=== PATIENT | male | born 1975 | race Caucasian/White ===

== ENCOUNTER 2019-02-16 09:53 | Outpatient (CLI) | payer OTHER, SELFPAY ==
[2019-02-16 12:53] LABS: Basophils Percent Auto 0.6 % (0.2-1.2); Eosinophils Absolute Auto 0.1 K/mm3 (0-0.3); Eosinophils Percent Auto 1.7 % (0-4.4); Hematocrit 47.6 % (42.0-52.0); Immature Granulocyte Absolute 0.03 K/mm3 (0.00-0.031); Immature Granulocyte Percent A 0.5 % (0-0.5); Lymphocytes Absolute Auto 1.26 K/mm3 (0.9-3.2); Mean Corpuscular HGB Conc 33.6 g/dl (32-36); Mean Corpuscular Hemoglobin 32.3 pg (26-34); Mean Platelet Volume 11.6 fl (7.4-10.4); Monocytes Absolute Auto 0.6 K/mm3 (0.1-0.6); Monocytes Percent Auto 8.3 % (2.6-8.5); Neutrophils Absolute Auto 4.6 K/mm3 (1.3-6.7); Neutrophils Percent Auto 69.9 % (45.5-73.1); Platelet Count Result 198 k/mm3 (150-375); Red Blood Count 4.96 M/mm3 (4.6-6.20); White Blood Count 6.6 K/mm3 (4.5-10.0)
[2019-02-16 12:59] LABS: Alanine Aminotransferase 67 U/L (4-50); Albumin Level 4.8 g/dL (3.5-5.1); Alkaline Phosphatase 70 U/L (38-126); Aspartate Amino Transferase 42 U/L (17-59); Bilirubin,Total 0.7 mg/dL (0.2-1.3); Blood Urea Nitrogen 14 mg/dL (9-20); Calcium 9.8 mg/dL (8.4-10.2); Carbon Dioxide 28 mmol/L (22-30); Chloride 96 mmol/L (98-107); Cholesterol 227 mg/dL (0-200); Estimated Glomerular Filt Rate > 60; Glucose 98 mg/dL (75-110); HDL Direct 46 mg/dL; Sodium 140 mmol/L (137-145); Triglycerides 185 mg/dL (<150)
[2019-02-16 13:08] LABS: Hemoglobin A1C 5.5 % (<5.7)
[2019-02-16 13:11] LABS: LDL Cholesterol Direct 128 mg/dL
[2019-02-16 13:24] LABS: Creatinine Urine 20.2 mg/dL
[2019-02-16 13:27] LABS: MALB Creatinine Ratio 316.3 mg/g (0-30); Microalbumin Urine Random 63.9 mg/L (0-16.7)
[2019-02-16 13:31] LABS: Prostate Specific Antigen 1.6 ng/mL (< OR = 4.0); Thyroid Stimulating Hormone 0.741 uIU/mL (0.465-4.680)
== END 2019-02-16 09:54 | disposition home or self-care (01) ==
LOC: ANHVADLAB 09:56
PROVIDERS: PCP Internal Medicine; Visit Provider Internal Medicine
DX: I10 Essential (primary) hypertension (principal); E78.5 Hyperlipidemia, unspecified; Z12.5 Encounter for screening for malignant neoplasm of prostate; Z79.899 Other long term (current) drug therapy
CPT/HCPCS: 36415; 80053; 80061; 82043; 83036; 84153; 84443; 85025

== ENCOUNTER 2019-12-15 06:55 | Outpatient (NON) | payer BC, SELFPAY ==
[2019-12-15 18:16] LABS: SARS-CoV-2 RNA PCR Negative
== END 2019-12-15 06:56 ==
PROVIDERS: PCP Internal Medicine; Visit Provider Internal Medicine
DX: R09.89 Other specified symptoms and signs involving the circulatory and respiratory systems (principal); Z20.828 Contact with and (suspected) exposure to other viral communicable diseases
CPT/HCPCS: 87635; C9803; U0003

== ENCOUNTER → 2020-05-06 06:57 | Outpatient (CLI) | payer BC, SELFPAY ==
[2020-05-06 22:51] LABS: SARS-CoV-2 RNA PCR Negative
== END ==
PROVIDERS: PCP Internal Medicine; Visit Provider Internal Medicine
DX: Z20.822 Contact with and (suspected) exposure to COVID-19 (principal); R68.89 Other general symptoms and signs
CPT/HCPCS: C9803; U0003; U0005

== ENCOUNTER → 2021-01-12 01:47 | Outpatient (CLI) | payer BC, SELFPAY ==
[2021-01-12 11:28] LABS: Influenza Control Positive
[2021-01-12 22:24] LABS: SARS-CoV-2 RNA PCR Negative
== END ==
PROVIDERS: PCP Internal Medicine; Visit Provider Internal Medicine
DX: R68.89 Other general symptoms and signs (principal); Z20.822 Contact with and (suspected) exposure to COVID-19
CPT/HCPCS: 87804; C9803; U0003; U0005

== ENCOUNTER 2021-03-07 14:06 | Emergency (ER) | payer BC, SELFPAY ==
[2021-03-07 14:08] VITALS: BP 144/96; PULSE 87; RESP 20; TEMP 36.6; O2SAT 98
--- NOTE | 2021-03-07 17:04 | PC.NURSE ---
pt. states he is going to follow up with pcp. pt. NAD.
== END 2021-03-08 03:09 | disposition left against medical advice (07) ==
DX: Z53.21 Procedure and treatment not carried out due to patient leaving prior to being seen by health care provider (principal)
CPT/HCPCS: 99199

== ENCOUNTER → 2021-03-09 08:01 | Outpatient (CLI) | payer BC, SELFPAY ==
--- NOTE | ~2021-03-09 | XR_ITS ---
EXAMINATION: XR hand LT 2V DATE: 03/09/2021 08:23 INDICATION: Left hand pain. TECHNIQUE: 2 views of left hand were obtained. COMPARISON: None. FINDINGS: Bone alignment is normal. No acute fracture. There is chronic deformity of tuft of first di stal phalanx. There is mild osteoarthritis of first-third metacarpophalangeal joints, first interphal angeal joint, and second distal interphalangeal joint. IMPRESSION: 1. Mild polyarticular osteoarthritis. Reviewed, dictated and finalized at location B. 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
--- NOTE | ~2021-03-09 | XR_ITS ---
EXAMINATION: XR forearm LT 2V DATE: 03/09/2021 08:23 INDICATION: Left forearm pain. TECHNIQUE: 2 views of left forearm were obtained. COMPARISON: None. FINDINGS: Bone alignment is normal. No fracture. Joint spaces are well maintained. There is no elbow joint effusion. IMPRESSION: 1. No fracture. Reviewed, dictated and finalized at location B. GER LEADERSHIP DEVELOPMENT IMPRESSION: 1. No fracture.
== END ==
PROVIDERS: PCP Internal Medicine; Visit Provider Nurse Practitioner
DX: M18.12 Unilateral primary osteoarthritis of first carpometacarpal joint, left hand (principal); M19.042 Primary osteoarthritis, left hand
CPT/HCPCS: 73090; 73120

== ENCOUNTER 2021-03-28 14:31 | Outpatient (CLI) | payer BC, SELFPAY ==
--- NOTE | ~2021-03-28 | CT_ITS ---
EXAMINATION: CT brain wo/w con DATE: 03/28/2021 15:00 INDICATION: Unspecified injury of head, initial encounter. TECHNIQUE: Computed tomography (CT) of the head was performed without and with 100 mL Omnipaque 350 i ntravenous contrast. The mA was adjusted according to patient size. Iterative reconstruction techniqu e was employed. The dose-length product was 1210.67 mGy-cm. COMPARISON: Head CT 08/20/2012 FINDINGS: There is no intracranial hemorrhage, acute infarction, or abnormal intracranial mass lesion . The ventricles are normal in size. There is mild mucosal thickening in the ethmoid sinuses. The mas toid air cells are normal. The orbits are normal. IMPRESSION: 1. Normal brain. Reviewed, dictated and finalized at location A. CTURAL ARCHITECT IMPRESSION: 1. Normal brain.
[2021-03-28 14:52] LABS: Estimated Glomerular Filt Rate > 60
== END 2021-03-28 14:32 | disposition home or self-care (01) ==
LOC: ANHIMG 14:34
PROVIDERS: PCP Internal Medicine; Visit Provider Nurse Practitioner
DX: S09.90XA Unspecified injury of head, initial encounter (principal); X58.XXXA Exposure to other specified factors, initial encounter
CPT/HCPCS: 70470; Q9967

== ENCOUNTER 2021-05-02 08:45 | Outpatient (CLI) | payer BC, SELFPAY ==
--- NOTE | 2021-05-02 11:30 | NEURO_ITS ---
Impression: # Complains of numbness of left hand. # Normal nerve conduction study. # No Carpal Tunnel Syndrome or ulnar neuropathy. # Normal needle/EMG exam. # Clinical correlation recommended. Nerve Conduction Studies Anti Sensory Summary Table Stim Site NR Peak (ms) P-T Amp (?V) Site1 Site2 Delta-P (ms) Dist (cm) Ricky (m/s) Left Median Anti Sensory (2-3nd Digit) Wrist 2.7 92.9 Wrist 2-3nd Digit 2.7 14.0 52 Wrist 2.7 58.6 Wrist 2-3nd Digit 2.7 14.0 52 Left Radial Anti Sensory (Base 1st Digit) Wrist 2.1 20.7 Wrist Base 1st Digit 2.1 0.0 Left Ulnar Anti Sensory (5th Digit) Wrist 2.5 48.3 Wrist 5th Digit 2.5 14.0 56 Motor Summary Table Stim Site NR Onset (ms) O-P Amp (mV) Site1 Site2 Delta-0 (ms) Dist (cm) Ricky (m/s) Left Median Motor (Abd Poll Brev) Wrist 2.7 7.2 Elbow Wrist 4.5 27.0 60 Elbow 7.2 6.6 Left Ulnar Motor (Abd Dig Minimi) Wrist 2.1 6.3 A Elbow Wrist 4.6 27.0 59 A Elbow 6.7 4.7 F Wave Studies NR F-Lat (ms) L-R F-Lat (ms) Left Median (Mrkrs) (Abd Poll Brev) 26.25 Left Ulnar (Mrkrs) (Abd Dig Min) 27.19 EMG Side Muscle Nerve Root Ins Act Fibs Amp Dur Recrt Comment Left 1stDorInt Ulnar C8-T1 Nml Nml Nml Nml Nml Left Ext Indicis Radial (Post Int) C7-8 Nml Nml Nml Nml Nml Left Ext Digitorum Radial (Post Int) C7-8 Nml Nml Nml Nml Nml Left BrachioRad Radial C5-6 Nml Nml Nml Nml Nml Left PronatorTeres Median C6-7 Nml Nml Nml Nml Nml Left Abd Poll Brev Median C8-T1 Nml Nml Nml Nml Nml Left ABD Dig Min Ulnar C8-T1 Nml Nml Nml Nml Nml Left Abd Poll Long Radial (Post Int) C7-8 Nml Nml Nml Nml Nml MTDD
== END 2021-05-02 08:46 | disposition home or self-care (01) ==
LOC: ANHNEURO 08:46
PROVIDERS: PCP Internal Medicine; Visit Provider Nurse Practitioner
DX: R20.0 Anesthesia of skin (principal)
CPT/HCPCS: 95886; 95909

== ENCOUNTER 2021-07-05 05:37 | Outpatient (CLI) | payer BC, SELFPAY ==
--- NOTE | 2021-07-10 16:26 | WPDHOMESLEEP ---
Sleep Study - Home Unattended Date of Study: 07/05/21 Ordering Provider: Mamadou Etienne MD Interpreting Provider: Kayla Hernandez, DO Home Sleep Study Type: Apnea Link Air Height: 1.73 m Weight: 104.326 kg Body Mass Index: 34.9 Neck Circumference (inches): 18.5 [place]: 7 Reason for Sleep Study Snoring, daytime hypersomnia Sleep History The patient is a 46-year-old male with hypertension, hyperlipidemia, tobacco use disorder and alcohol use disorder that had a sleep study ordered by his primary care for evaluation of sleep apnea. 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 He denies awakening from sleep short of breath. He occasionally awakens at night with heartburn, belching or cough. He frequently snores and is occasionally loud enough that others complain. He rarely has trouble sleeping when he has a cold. He rarely wakes up gasping for air throughout the night. He occasionally has breathing problems at night observed by himself or others. He rarely sweats excessively at night. He rarely has heart palpitations or irregular heartbeats during the night. He occasionally falls asleep during the day but never while driving. He denies cataplexy and hypnagogic / hypnopompic hallucinations. He occasionally feels unable to move while waking up or falling asleep. He rarely has trouble at school or work due to sleepiness. He rarely feels afraid of going to sleep. He denies having nightmares. He rarely remembers his dreams. He occasionally has thoughts racing through his mind. He rarely feels sad or depressed. He occasionally has anxiety. He occasionally has muscular tension. He occasionally notices parts of his body jerk. He rarely kicks during the night. He rarely has crawling and aching feelings in his legs. He occasionally has leg pain during the night. He occasionally grinds his teeth during sleep but never awakens with morning jaw pain. He is rarely bothered by pain during the day but frequently awakened by pain during the night. He frequently wakes up feeling stiff in the morning. He frequently wakes up with sore achy muscles. He frequently wakes up with pain in the neck, spine or other joints. He goes to bed between 10 and 10:30 p.m. on weekdays and between 11:00 p.m. and midnight on the weekends. It takes him 15 minutes to fall asleep. He wakes up 1-2 times throughout the night to you let the dog out. He is able fall back asleep within 5-10 minutes. He wakes up at 7:00 a.m. on both weekdays and weekends. He typically gets 7 hours of sleep per night. He will stay in bed for 10 minutes after waking up in the morning. He currently lives with his and 2 children. He does not consume any caffeinated beverages within 2 hours of bedtime. He does not engage in physical exercise before bedtime. He will read and watch television before falling asleep. He will take naps in the afternoon or the evening and they are refreshing. He currently smokes half a pack of cigarettes per day for the past 5 years. He also chews tobacco. he has 3 alcoholic beverages per day. He denies recreational drug use. [facility] Past Medical History Medical History Alcohol abuse Dyslipidemia Essential hypertension Social History Social History Smoking packs per day: 0.5 Smoking cigarettes per day: 10.0 Years smoked: 5 Smoking pack-years: 2.50 Tobacco type: cigarettes Smokeless tobacco user: chewing tobacco Second hand tobacco smoke exposure: No Additional smoking assessment comments: 20 years use Alcohol intake: current Drinks per week: 15 Alcohol use details: 3 drinks a week Medications Home Medications Medication Instructions Recorded Confirmed Type aspirin 81 mg tablet,delayed 81 mg PO DAILY 07/22/20 06/06/21 History release rosuvastatin 20 mg tablet See Rx Instructions
[2021-07-10 16:42] VITALS: BMI 34.9
== END 2021-07-06 13:08 | disposition home or self-care (01) ==
LOC: ANHCSM 05:37
PROVIDERS: PCP Internal Medicine; Visit Provider Internal Medicine
DX: G47.33 Obstructive sleep apnea (adult) (pediatric) (principal)
CPT/HCPCS: 95806

== ENCOUNTER 2024-12-14 20:33 | Observation (INO) | payer BC, SELFPAY ==
[2024-12-14] VITALS (12 sets, daily range): BP systolic 142; BP diastolic 80; PULSE 53–75; RESP 14–28; TEMP 36.8; O2SAT 90–100
--- NOTE | ~2024-12-14 | CT_ITS ---
EXAMINATION: CTA chest abdomen pelvis DATE: 12/15/2024 00:57 INDICATION: Chest pain. TECHNIQUE: Computed tomographic angiography (CTA) of the chest, abdomen, and pelvis was performed with 100 mL Omnipaque-350 intravenous contrast. Automated exposure control and iterative reconstruction technique were employed. The dose- length product was 1577.60 mGy-cm. Maximum intensity projection 3D- reconstructions of the aorta and other arteries were constructed by the technologist on a separate workstation. COMPARISON: CT abdomen and pelvis 04/23/2018 FINDINGS: CHEST CTA: The lungs demonstrate mild atelectasis. No pleural effusion. The heart size is normal. There are coronary artery calcifications. No pericardial effusion. The aorta is normal in caliber. There is wall thickening of the distal esophagus. There is mild thoracic spondylosis. ABDOMEN AND PELVIS CTA: Calcifications in the liver are consistent with old granulomatous disease. The gallbladder, spleen, pancreas, and adrenal glands are normal. There are cysts in the kidneys measuring up to 10 mm on the left. The bladder is distended. There are bilateral inguinal hernias containing fat. There is diverticulosis of the colon without evidence of diverticulitis. There are changes of appendectomy. Aortic atherosclerosis is noted. There is no significant stenosis of celiac axis, superior mesenteric artery, the renal arteries, or inferior mesenteric artery. There is mild lumbar spondylosis. IMPRESSION: 1. Mild aortic atherosclerosis. No aneurysm or dissection. 2. Wall thickening of the distal esophagus, consistent with esophagitis. Reviewed, dictated and finalized at location E.
--- NOTE | ~2024-12-14 | XR_ITS ---
EXAMINATION: XR chest 2V DATE: 12/14/2024 21:38 INDICATION: Chest pain and vomiting TECHNIQUE: frontal and lateral views of the chest were obtained. COMPARISON: Chest radiograph dated 12/13/2009 FINDINGS: Mildly decreased lung volumes. No focal airspace opacities, pulmonary edema, pleural effusion or pneumothorax. The cardiomediastinal silhouette is normal. Mild thoracic spondylosis. IMPRESSION: 1. No acute cardiopulmonary disease. Reviewed, dictated and finalized at location A.
--- NOTE | 2024-12-14 20:36 | ECG_ITS ---
Test Date: 2024-12-14 20:35:29 Measurements Intervals [place] Rate: 75 P: 59 SD: 182 QRS: 20 QRSD: 90 T: 42 QT: 391 QTc: 437 Interpretive Statements SINUS RHYTHM ANTEROSEPTAL INFARCT, AGE INDETERMINATE BASELINE ARTIFACT- I, II, III, AVR, AVL, AVF, V1-V6 ABNORMAL ECG No previous ECG available for comparison Electronically Signed On 12-15-2024 08:13:20 CDT by Ilan Maria D.O.
--- NOTE | 2024-12-14 20:53 | PC.NURSE ---
Pt to XR at this time
[2024-12-14] MEDS: MORPHINE SULFATE (*CRX) 4 MG/ML INJ IV PUSH (20:59)
[2024-12-14] MEDS: ONDANSETRON INJ 4 MG/2 ML VIAL IV PUSH (20:59)
[2024-12-14] MEDS: NITROGLYCERIN SL 0.4 MG TABLET SUBLINGUAL (20:59)
[2024-12-14 21:00] LABS: Lipase 67 U/L (23-300)
[2024-12-14 21:01] LABS: INR 0.9; Prothrombin Time 12.4 Seconds (11.1-14.7)
[2024-12-14 21:02] LABS: Partial Thromboplastin Time 27.2 Seconds (22.3-36.8)
[2024-12-14 21:10] LABS: Troponin I < 0.012 ng/mL (0.000-0.034)
[2024-12-14] MEDS: HYDROmorphone HCL INJ (*CRX) 1 MG/ML SYR IV PUSH (22:07)
[2024-12-14] MEDS: PROCHLORPERAZINE EDISYLATE 10 MG/2 ML VIAL IV PUSH (22:07)
--- OUTSIDE RECORDS SUMMARY | 2024-12-14 22:20 | XMS_ITS | Clinical Summary ---
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 Name Role Phone Geri Johnson NP Primary Care Provider [phone] Kirby Broderick MD Unavailable [phone] Allergies Active Allergy Reactions Criticality Noted Date Comments Shellfish Hives Medium 08/24/1979 Medications aspirin 81 mg enteric coated tablet Take 1 tablet (81 mg total) by mouth daily Active metoprolol XL (TOPROL-XL) 25 mg extended release tabletIndications:P rimary hypertension Take 1 tablet (25 mg total) by mouth daily 90 tablet 3 4 02/25/20 25 Active atorvastatin (LIPITOR) 40 mg tabletIndications:M ixed hyperlipidemia Take 1 tablet (40 mg total) by mouth nightly 90 tablet 3 4 02/25/20 25 Active amLODIPine (NORVASC) 5 mg tabletIndications:h ypertension Take 1 tablet (5 mg total) by mouth daily 90 tablet 3 4 02/20/20 25 Active Active Problems Problem Noted Date Diagnosed Date Primary hypertension 02/25/2024 Assessment & Plan (02/25/2024 11:30 AM CONSTRUCTION MANAGEMENT ASSISTANT): Better controlled, close to goal 130/80. NO changes due to current stress factors. Continuing on amlodipine 5 and metoprolol IR was changed to Toprol 25 mg daily for ease of use. Start bp log at home. F/u in office in 3 months once current stress inducers have settled. Mixed hyperlipidemia 02/25/2024 Assessment & Plan (02/25/2024 11:29 AM CONSTRUCTION MANAGEMENT ASSISTANT): Continuing on atorvastatin. Last LDL was 206. Repeat lipid panel. Resolved Problems Problem Noted Date Diagnosed Date Resolved Date Chest pain, unspecified type 12/17/2023 02/25/2024 Surgical History Surgery Date Site/Laterality Comments APPENDECTOMY 01-13-2013 Medical History Medical History Date Comments Hypertension HLD (hyperlipidemia) Obesity (BMI 30.0-34.9) Alcohol abuse Chest pain, unspecified type 12/17/2023 Family History Medical History Relation Name Comments Cancer Brother 1 Eder Gula II Heart attack Brother 2 Yonatan Gula Heart disease Brother 2 Yonatan Zepeda Heart attack Father Mustapha Zepeda II Heart disease Father Mustapha Zepeda II Relation Name Status Comments Brother 1 Eder Zepeda II Alive Brother 2 Yonatan Zepeda Father Mustapha Zepeda II Social History Tobacco Use Types Packs/Day Years Used Date Smoking Tobacco: Former Cigarettes 0.5 5 0 03/25/1991 - 03/25/1996 Smokeless Tobacco: Former Chew Quit: 07/23/2022 AUDIT-C Answer Date Recorded Q1: How often do you have a drink containing alc ohol? Monthly or less 12/18/2023 Q2: How many drinks containi ng alcohol do you have on a typical day when you are drinking? 1 or 2 12/18/2023 Q3: How often do you have si x or more drinks on one occasion? Never 12/18/2023 Personal Safety Answer Date Recorded Have you ever been in or are you currently in a harmful physical or emotional relationship or is someone making you feel afraid or unsafe? Denies 12/18/2023 Sex and Gender Information Value Date Recorded Sex Assigned at Not on file Legal Sex Male 5:46 PM CONSTRUCTION MANAGEMENT ASSISTANT Gender Identity Not on file Sexual Orientation Not on file Obstetrics History Last Filed Vital Signs Vital Sign Reading Time Taken Comments Blood Pressure 125/70 06/25/2024 3:56 PM CDT Pulse 77 06/25/2024 3:56 PM CDT Temperature 36.4 C (97.6 F) 12/18/2023 3:24 PM CDT Respiratory Rate 18 12/18/2023 3:24 PM CDT Oxygen Saturation 95% 06/25/2024 3:56 PM CDT Inhaled Oxygen Concentration - - Weight 106.3 kg (234 lb 6.4 oz) 06/25/2024 3:56 PM CDT Height 172.7 cm (5' 8) 02/25/2024 10:5 9 AM CONSTRUCTION MANAGEMENT ASSISTANT Body Mass Index 35.64 02/25/2024 10:59 AM CONSTRUCTION MANAGEMENT ASSISTANT Plan of Treatment Health Maintenance Due Date Last Done Comments Colon Cancer Screening-Colonoscopy 1973 Depression Screening 1973 Hepatitis C Screening 1973 Prostate Cancer Screening-PSA 1973 DTaP/Tdap/Td Vaccine (1 - Tdap) 1984 Hepatitis B Screening 1991 Regular Well Visit/Exam 18-64 1991 Pneumococcal vaccine <65 (1 of 2 - PCV) 1992 Zoster Vaccine (1 of 2) 2023 Influenza Vaccine (#1) 2024 Insurance [employer] ACCESS CHOICE [employer] ACCESS CHOICE Advance Directives For more information, please contact: [phone] * Full Code (Latest Code Status on File) Date Activated Date Inactivated Comments 12/17/2023 8:45 PM 12/18/2023 8:28 PM * Full Code Date Activated Date Inactivated Comments 12/17/2023 8:06 PM 12/17/2023 8:45 PM Care Teams Beef Cattle Farmer Relationship Specialty Start Date End Date Geri Johnson NP [address] [place] [address] PCP - General Nurse Practitioner 12/17/23 Kirby Broderick MD [facility] [place] [address] Consulting Physician Cardiology 12/18/23
[2024-12-14 23:05] LABS: Hematocrit 41.6 % (42.0-52.0); Hemoglobin 14.8 g/dL (14.0-18.0); Immature Granulocyte Percent A 0.5 % (0-0.5); Lymphocytes Absolute Auto 1.24 K/mm3 (0.9-3.2); Mean Corpuscular HGB Conc 35.6 g/dl (32-36); Mean Corpuscular Hemoglobin 31.5 pg (26-34); Mean Corpuscular Volume 88.5 fl (80-100); Nucleated Red Blood Cells Absolute Auto 0.000 K/mm3 (0.0-0.012); Nucleated Red Blood Cells Perc 0.0 % (0.0-0.2); Platelet Count Result 214 k/mm3 (150-375); Red Blood Count 4.70 M/mm3 (4.6-6.20); White Blood Count 14.6 K/mm3 (4.5-10.0)
--- NOTE | 2024-12-14 23:21 | ECG_ITS ---
Test Date: 2024-12-14 23:21:48 Measurements Intervals [place] Rate: 56 P: 54 VA: 210 QRS: 23 QRSD: 94 T: 46 QT: 451 QTc: 438 Interpretive Statements SINUS BRADYCARDIA WITH FIRST DEGREE AV BLOCK ANTEROSEPTAL INFARCT, AGE INDETERMINATE BASELINE ARTIFACT- I, III ABNORMAL ECG No previous ECG available for comparison Electronically Signed On 12-15-2024 06:13:54 CDT by Ilan Maria D.O.
--- NOTE | 2024-12-14 23:50 | ED.GENADULT ---
HPI - General Adult General Chief complaint: Chest Pain Stated complaint: CP RADIATING DOWN LEFT ARM; UNRELIEVED BY NTG Time Seen by Provider: 12/14/24 20:39 History of Present Illness HPI narrative: Patient is a 49-year-old gentleman presents emergency department with chief complaint of chest pain patient reports that throughout the day started having episodes of chest pain starts the middle portion of his chest radiates to his back into his left arm and neck the patient reports he got diaphoretic with these episodes and reports that it was not improve when he EMS gave 2 sprays of nitroglycerin the patient reports that he had a similar episode and was seen at a hospital in [place] at that time was diagnosed with high blood pressure and dyslipidemia the patient is on antihypertensives and reports that he is on a statin as well Related Data Home Medications ?Medication ?Instructions ?Recorded ?Confirmed ?Last Taken ?Type amlodipine 5 mg tablet See Rx Instructions .Route .COMPLEX 03/03/24 04/13/24 Unknown History aspirin 81 mg tablet,delayed 81 mg PO DAILY 03/03/24 03/03/24 Unknown History release (Adult Aspirin Regimen) atorvastatin 40 mg tablet 40 mg PO QHS 03/03/24 03/03/24 Unknown History metoprolol succinate 25 mg 25 mg PO DAILY 03/03/24 03/03/24 Unknown History tablet,extended release 24 hr Allergies Allergy/AdvReac Type Severity Reaction Status Date / Time Bumble Bee Allergy Mild Swelling Uncoded 04/13/24 07:27 Shrimp Allergy Mild Swelling Uncoded 04/13/24 07:27 Review of Systems Review of Systems: A 10 system review of systems was completed on the patient and is negative except for what is stated in the HPI. Nursing and ancillary documentation was reviewed. [facility] Past Medical History Medical History Alcohol abuse Dyslipidemia Essential hypertension Social History Social History Smoking packs per day: 0.5 Smoking cigarettes per day: 10.0 Years smoked: 5 Smoking pack-years: 2.50 Smoking status: Former smoker Tobacco type: cigarettes Smokeless tobacco user: chewing tobacco Second hand tobacco smoke exposure: No Additional smoking assessment comments: 20 years use Alcohol intake: current Drinks per week: 15 Alcohol use details: 3 drinks a week Substance use: never Lack of Transportation: No Lack of Food: Never True Current Housing: I Have Housing Concerned About Future Housing: No Difficulty Paying Gas/Electric Bills: Decline to Answer Difficulty Paying for Meds: No Education: Bachelor's Degree Difficulty w/ Childcare or Family Care: No Living arrangements: with family Occupation/Education: occupation Gender identity (if verbalized by the patient): Male Sexual Orientation (if Verbalized by the Patient): Straight or Heterosexual Spiritual care concerns: No Agree to blood products: Yes Exam Narrative: GENERAL: Well-appearing, well-nourished, and in moderate acute pain distress. HEAD: Normocephalic, atraumatic. EYES: PERRLA and EOMI. ENT: Nares clear, no rhinorrhea or epistaxis. Mucous membranes moist. NECK: Supple. CHEST: Clear to auscultation. No respiratory distress. HEART: Regular rate and rhythm. No murmur heard. Normal peripheral pulses. ABDOMEN: Soft, nontender, nondistended, normal active bowel sounds. EXTREMITIES: Normal range of motion. No edema. SKIN: Warm, dry, no rash. NEURO: No focal deficits. Alert and oriented x3. PSYCH: Normal mood and affect. Course Vital Signs Vital signs: Vital Signs Temperature 36.8 C 12/14/24 20:31 Pulse Rate 74 12/14/24 20:31 Respiratory Rate 16 12/14/24 20:31 Blood Pressure 142/80 H 12/14/24 20:31 Pulse Oximetry 95 12/14/24 20:31 Oxygen Delivery Room Air 12/14/24 20:31 Temperature 36.8 C 12/14/24 20:31 Pulse Rate 74 12/14/24 20:31 Respiratory Rate 16 12/14/24 20:31 Blood Pressure 142/80 H 12/14/24 20:31 Pulse Oximetry 100 12/14/24 23:06 Oxygen Delivery Nasal Cannula 12/14/24 23:06 Oxygen Flow Rate 2 12/14/24 23:06 Medical Decision Making [facility] Narrative Medical decision making narrative: Differential diagnosis includes ACS, pancreatitis, pneumothorax, gastritis, EKG showed no acute ST elevations Initial troponin was negative Lipase was negative Chest x-ray showed no focal infiltrate Electrolytes did show a sodium 120 Patient was started on 75 mL an hour normal saline and a BMP will be repeated case was discussed with nephrology the consult on the patient Vital Signs Vital Signs: Vital Signs Temperature 36.8 C 12/14/24 20:31 Pulse Rate 74 12/14/24 20:31 Respiratory Rate 16 12/14/24 20:31 Blood Pressure 142/80 H 12/14/24 20:31 Pulse Oximetry 95 12/14/24 20:31 Oxygen Delivery Room Air 12/14/24 20:31 Temperature 36.8 C 12/14/24 20:31 Pulse Rate 74 12/14/24 20:31 Respiratory Rate 16 12/14/24 20:31 Blood Pressure 142/80 H 12/14/24 20:31 Pulse Oximetry 100 12/14/24 23:06 Oxygen Delivery Nasal Cannula 12/14/24 23:06 Oxygen Flow Rate 2 12/14/24 23:06 Lab Data 12/14/24 20:37 12/14/24 23:24 Labs: Lab Results 12/14/24 12/14/24 12/14/24 Range/Units 20:37 20:38 23:24 WBC 14.6 H (4.5-10.0) K/mm3 RBC 4.70 (4.6-6.20) M/mm3 Hgb 14.8 (14.0-18.0) g/dL Hct 41.6 L (42.0-52.0) % MCV 88.5 (80-100) fl MCH 31.5 (26-34) pg MCHC 35.6 (32-36) g/dl RDW 12.0 (11.5-14.5) % Plt Count 214 (150-375) k/mm3 MPV 11.1 H (7.4-10.4) fl Immature Gran % (Auto) 0.5 (0-0.5) % Neut % (Auto) 84.1 H (45.5-73.1) % Lymph % (Auto) 8.5 L (18.3-44.2) % [place]gs % (Auto) 6.2 (2.6-8.5) % Eos % (Auto) 0.2 (0-4.4) % Baso % (Auto) 0.5 (0.2-1.2) % Lymph # (Auto) 1.24 (0.9-3.2) K/mm3 [place] # (Auto) 0.9 H (0.1-0.6) K/mm3 Eos # (Auto) 0.0 (0-0.3) K/mm3 Baso # (Auto) 0.1 (0.0-0.1) K/mm3 Abs Immat Gran (auto) 0.08 H (0.00-0.031) K/mm3 Absolute Neuts (auto) 12.3 H (1.3-6.7) K/mm3 Absolute Nucleated RBC 0.000 (0.0-0.012) K/mm3 Nucleated RBC % 0.0 (0.0-0.2) % PT 12.4 (11.1-14.7) Seconds INR 0.9 APTT 27.2 (22.3-36.8) Seconds Sodium 120 L (137-145) mmol/L Potassium 3.7 (3.4-5.0) mmol/L Chloride 86 L (98-107) mmol/L Carbon Dioxide 26 (22-30) mmol/L Anion Gap 8 (4-12) mmol/L BUN 8 L D (9-20) mg/dL Creatinine 0.60 L (0.7-1.3) mg/dL Estim Creat Clear Calc 146 ml/min Estimated GFR > 60 (59 - ) Glucose 134 H (65-110) mg/dL Calcium 8.5 (8.4-10.2) mg/dL Total Bilirubin 1.5 H (0.2-1.3) mg/dL AST 42 (17-59) U/L ALT 56 H (6-50) U/L Alkaline Phosphatase 90 (38-126) U/L Troponin I < 0.012 < 0.012 (0.000-0.034) ng/mL Total Protein 7.2 (6.3-8.2) g/dL Albumin 4.2 (3.5-5.1) g/dL Lipase 67 (23-300) U/L Discharge Plan Discharge Clinical Impression: Chest pain, Acute hyponatremia Patient Disposition: Still a Patient Condition: Stable Patient Language: Amharic Prescriptions: No Action aspirin [Adult Aspirin Regimen] 81 mg tablet,delayed release (DR/EC) 81 mg PO DAILY atorvastatin 40 mg tablet 40 mg PO QHS metoprolol succinate 25 mg tablet extended release 24 hr 25 mg PO DAILY amlodipine 5 mg tablet See Rx Instructions .ROUTE .COMPLEX Dose Instruction: TAKE 1 TABLET BY MOUTH DAILY Rx Instructions: TAKE 1 TABLET BY MOUTH DAILY Follow-up/Referrals: Geri Johnson APRN [Primary Care Provider, Internal Medicine] Time of Disposition: 02:40
[2024-12-14 23:55] LABS: Troponin I < 0.012 ng/mL (0.000-0.034)
[2024-12-15] VITALS (31 sets, daily range): BP systolic 128–164; BP diastolic 72–116; PULSE 57–85; RESP 13–21; TEMP 36.4–36.8; O2SAT 92–99; BMI 34.6; BMI 35.0
[2024-12-15 00:08] LABS: Alanine Aminotransferase 56 U/L (6-50); Albumin Level 4.2 g/dL (3.5-5.1); Alkaline Phosphatase 90 U/L (38-126); Anion Gap 8 mmol/L (4-12); Aspartate Amino Transferase 42 U/L (17-59); Bilirubin,Total 1.5 mg/dL (0.2-1.3); Blood Urea Nitrogen 8 mg/dL (9-20); Calcium 8.5 mg/dL (8.4-10.2); Carbon Dioxide 26 mmol/L (22-30); Chloride 86 mmol/L (98-107); Estimated CRCL calculation 146 ml/min; Estimated Glomerular Filt Rate > 60; Glucose 134 mg/dL (65-110); Potassium 3.7 mmol/L (3.4-5.0); Sodium 120 mmol/L (137-145); Total Protein 7.2 g/dL (6.3-8.2)
--- NOTE | 2024-12-15 02:44 | ECG_ITS ---
Test Date: 2024-12-15 02:49:13 Measurements Intervals [place] Rate: 67 P: 46 [place]: 208 QRS: 28 QRSD: 89 T: 50 QT: 409 QTc: 434 Interpretive Statements SINUS RHYTHM WITH FIRST DEGREE AV BLOCK ANTEROSEPTAL INFARCT, AGE INDETERMINATE BASELINE ARTIFACT- I, II, III, AVR, AVL ,AVF, V1-V6 ABNORMAL ECG Compared to ECG 12/14/2024 23:21:48 HEART RATE HAS INCREASED Electronically Signed On 12-15-2024 06:14:35 CDT by Ilan Maria D.O.
[2024-12-15 03:32] LABS: Troponin I < 0.012 ng/mL (0.000-0.034)
[2024-12-15] MEDS: SODIUM CHLORIDE 0.9% IV 1,000 ML 75 ML IV CONT (03:44)
--- NOTE | 2024-12-15 03:58 | ADMGEN ---
This patient, Jackson Zepeda, was admitted to IMU Room 206-02. Patient/family oriented to hospital policies and general routines including ID bracelet, bed and alarms, visiting hours, pain management, procedures, bathroom and other care routines, personal items, smoking policy, room service/diet, and visiting hours. Information on how to activate the Rapid Response Team has been discussed. Patient/Family are encouraged to report perceived risks to care and to ask questions if they do not understand what they are told or what they should do.
[2024-12-15] MEDS: CALCIUM CARBONATE (TUMS) 500 MG (200 MG ELEMENTAL) PO (04:20)
--- NOTE | 2024-12-15 05:31 | P.HP_ITS ---
H&P: HPI History of Present Illness Date/Time: 12/15/24 05:31 Chief Complaint: Chest pain, vomiting Narrative: 49-year-old male with PMH hypertension, dyslipidemia, alcohol use disorder, nicotine abuse by way of nicotine pouches, obesity class 1, presents to [facility] ER on 12/15/2024 complaining of chest pain. He last had workup in 2023 when he had midsternal chest pain. Nuclear stress test on 12/18/2023 demonstrates EF of 60%, a small/mild mid anteroseptal segment fixed defect, possibly attenuation artifact. His primary care is Geri Hughes. He reports he was following with a mechanical engineering lecturer and was told to have yearly checkups and everything was fine. He has been taking his aspirin. He uses nicotine pouches, he drinks very often, several beers per day. is present to report this. He believes he has had mild withdrawal before with sweating and tremors. He denies any other recreational drug use aside from occasional marijuana. Last alcoholic drink was 1 day prior to admission. Chest pain described as heavy, 9/10 left-sided which radiates to the back. This started while he was resting on 12/14/2024. He has had some vomiting nausea as well. He reports he has burning in his throat related to acid reflux and he uses Tums occasionally which helps. Patient got 2 sprays of nitroglycerin and reports that does not help. Morphine did not help. Finally Dilaudid improved symptoms. He reports the chest pain is minimal, 3/10. He is more so concerned about his acid reflux. He also tells me he drinks about 3 gal of water per day to stay hydrated. He does eat at least 2 full meals a day otherwise. Patient given Zofran, Compazine, aspirin 324 mg p.o. x1 as well. EKG without acute ST changes. Troponin negative x2. Review of Systems Review of Systems: All systems reviewed & are unremarkable except as noted in HPI and below (Subjective) [facility] Past Medical History Medical History Alcohol abuse Dyslipidemia Essential hypertension Family History Family History (Updated 12/15/24 @ 04:26 by Lilliana Wood RN) Father History of quadruple bypass Myocardial infarction Mother Brain aneurysm Sibling Myocardial infarction Social History Social History Smoking packs per day: 1 Smoking cigarettes per day: 20.0 Years smoked: 10 Smoking pack-years: 10.00 Smoking status: Former smoker Tobacco type: cigarettes Smokeless tobacco user: chewing tobacco Second hand tobacco smoke exposure: No Additional smoking assessment comments: 20 years use Alcohol intake: current Drinks per week: 40 Alcohol use details: 3 drinks a week Substance use: current Substance use type: marijuana Lack of Transportation: No Lack of Food: Never True Current Housing: I Have Housing Concerned About Future Housing: No Difficulty Paying Gas/Electric Bills: No Difficulty Paying for Meds: No Currently Unemployed: No Education: Bachelor's Degree Difficulty w/ Childcare or Family Care: No Living arrangements: with family Occupation/Education: occupation Gender identity (if verbalized by the patient): Male Sexual Orientation (if Verbalized by the Patient): Straight or Heterosexual Spiritual care concerns: No Agree to blood products: Yes Meds Home Medications and Allergies Home Medications ?Medication ?Instructions ?Recorded ?Confirmed ?Type amlodipine 5 mg tablet See Rx Instructions .Route . COMPLEX 03/03/24 12/15/24 History aspirin 81 mg tablet,delayed 81 mg PO DAILY 03/03/24 1 History release (Adult Aspirin Regimen) atorvastatin 40 mg tablet 40 mg PO QHS 03/03/24 History metoprolol succinate 25 mg 25 mg PO DAILY 03/03/2410/02 History tablet,extended release 24 hr Allergies Allergy/AdvReac Type Severity Reaction Status Date / Time Bumble Bee Allergy Mild Swelling Uncoded 04/13/24 07:27 Shrimp Allergy Mild Swelling Uncoded 04/13/24 07:27 Vital Signs Vital Signs - 24 hr 12/14/24 20:31 12/14/24 20:39 12/14/24 20:45 Temperature 98.3 F Pulse Rate 74 74 75 Respiratory Rate 16 17 16 Blood Pressure 142/80 H Pulse Oximetry 95 95 96 Oxygen Delivery Room Air Oxygen Flow Rate 12/14/24 21:16 12/14/24 21:33 12/14/24 21:59 Temperature Pulse Rate 74 64 64 Respiratory Rate 28 H 14 25 H Blood Pressure Pulse Oximetry 90 97 Oxygen Delivery Oxygen Flow Rate 12/14/24 22:00 12/14/24 22:21 12/14/24 23:06 Temperature Pulse Rate 68 59 L Respiratory Rate 20 14 Blood Pressure Pulse Oximetry 95 100 Oxygen Delivery Nasal Cannula Oxygen Flow Rate 2 12/14/24 23:18 12/14/24 23:32 12/14/24 23:47 Temperature Pulse Rate 53 L 54 L 58 L Respiratory Rate 14 15 14 Blood Pressure Pulse Oximetry 93 93 Oxygen Delivery Oxygen Flow Rate 12/15/24 01:09 12/15/24 01:10 12/15/24 01:15 Temperature Pulse Rate 63 65 62 Respiratory Rate 20 18 15 Blood Pressure 148/83 H Pulse Oximetry 98 96 96 Oxygen Delivery Oxygen Flow Rate 12/15/24 01:16 12/15/24 01:38 12/15/24 01:49 Temperature Pulse Rate 65 62 57 L Respiratory Rate 16 14 14 Blood Pressure 149/91 H Pulse Oximetry 96 97 Oxygen Delivery Oxygen Flow Rate 12/15/24 02:00 12/15/24 02:01 12/15/24 02:15 Temperature Pulse Rate 61 59 L 61 Respiratory Rate 15 15 13 Blood Pressure 144/92 H 164/104 H Pulse Oximetry 92 96 95 Oxygen Delivery Oxygen Flow Rate 12/15/24 02:19 12/15/24 02:30 12/15/24 02:31 Temperature Pulse Rate 61 74 65 Respiratory Rate 14 18 17 Blood Pressure 128/116 H Pulse Oximetry 97 95 97 Oxygen Delivery Oxygen Flow Rate 12/15/24 02:45 12/15/24 02:46 12/15/24 03:00 Temperature Pulse Rate 63 67 67 Respiratory Rate 16 21 H 16 Blood Pressure 143/89 H 153/95 H Pulse Oximetry 94 95 96 Oxygen Delivery Oxygen Flow Rate 12/15/24 03:01 12/15/24 03:17 12/15/24 03:30 Temperature Pulse Rate 59 L 58 L 67 Respiratory Rate 14 14 17 Blood Pressure Pulse Oximetry 97 96 Oxygen Delivery Oxygen Flow Rate 12/15/24 03:31 12/15/24 03:47 12/15/24 03:53 Temperature 97.9 F Pulse Rate 58 L 70 77 Respiratory Rate 14 16 Blood Pressure 143/85 H 147/87 H Pulse Oximetry 99 Oxygen Delivery Oxygen Flow Rate 12/15/24 04:00 12/15/24 04:00 12/15/24 04:00 Temperature Pulse Rate 70 62 Respiratory Rate Blood Pressure Pulse Oximetry Oxygen Delivery Room Air Oxygen Flow Rate 12/15/24 04:15 12/15/24 04:30 Temperature Pulse Rate 66 78 Respiratory Rate Blood Pressure Pulse Oximetry Oxygen Delivery Oxygen Flow Rate Exam Const: General: comfortable and no acute distress Other: A&O x3 HENMT: Mouth: Yes moist mucous membranes Eyes: Pupils: Equal, round and reactive pupils present Neck: Neck: supple Resp: Effort & Inspection: normal respiratory effort Auscultation: clear to auscultation bilaterally Cardio: Rate: regular rate Rhythm: regular rhythm Heart sounds: no murmurs Other: No reproducible chest pain GI: GI Palp: No Tenderness to palpation present (GI) Auscultation: normal bowel sounds Other: Distended and firm, patient reports this is normal. : General: Yes bladder normal to palpation Neuro: Motor exam (neuro): 5/5 motor strength present throughout Extrem: General: no edema H&P: Results Labs Labs: Short CBC 12/14/24 Range/Units 20:37 WBC 14.6 H (4.5-10.0) K/mm3 Hgb 14.8 (14.0-18.0) g/dL Hct 41.6 L (42.0-52.0) % Plt Count 214 (150-375) k/mm3 BMP 12/14/24 23:24 Sodium 120 L Potassium 3.7 Chloride 86 L Carbon Dioxide 26 BUN 8 L D Creatinine 0.60 L Glucose 134 H Calcium 8.5 Cardiac Enzymes 12/14/24 12/14/24 12/15/24 Range/Units 20:38 23:24 02:51 Troponin I < 0.012 < 0.012 < 0.012 (0.000-0.034) ng/mL Liver Function 12/14/24 Range/Units 23:24 Total Bilirubin 1.5 H (0.2-1.3) mg/dL AST 42 (17-59) U/L ALT 56 H (6-50) U/L Alkaline Phosphatase 90 (38-126) U/L Albumin 4.2 (3.5-5.1) g/dL Assessment and Plan Assessment and plan (1) Alcohol abuse: Code(s): F10.10 - Alcohol abuse, uncomplicated Status: Acute (2) Chest pain: Code(s): R07.9 - Chest pain, unspecified Status: Acute (3) Acute hyponatremia: Code(s): E87.1 - Hypo-osmolality and hyponatremia Status: Acute Plan 49-year-old male with PMH hypertension, dyslipidemia, alcohol use disorder, nicotine abuse by way of nicotine pouches, obesity class 1, presents to [facility] ER on 12/15/2024 complaining of chest pain. He last had workup in 2023 when he had midsternal chest pain. Nuclear stress test on 12/18/2023 demonstrates EF of 60%, a small/mild mid anteroseptal segment fixed defect, possibly attenuation artifact. His primary care is Geri Hughes. He reports he was following with a mechanical engineering lecturer and was told to have yearly checkups and everything was fine. He has been taking his aspirin. He uses nicotine pouches, he drinks very often, several beers per day. is present to report this. He believes he has had mild withdrawal before with sweating and tremors. He denies any other recreational drug use aside from occasional marijuana. Last alcoholic drink was 1 day prior to admission. Chest pain described as heavy, 9/10 left-sided which radiates to the back. This started while he was resting on 12/14/2024. He has had some vomiting nausea as well. He reports he has burning in his throat related to acid reflux and he uses Tums occasionally which helps. Patient got 2 sprays of nitroglycerin and reports that does not help. Morphine did not help. Finally Dilaudid improved symptoms. He reports the chest pain is minimal, 3/10. He is more so concerned about his acid reflux. He also tells me he drinks about 3 gal of water per day to stay hydrated. He does eat at least 2 full meals a day otherwise. Patient given Zofran, Compazine, aspirin 324 mg p.o. x1 as well. EKG without acute ST changes. Troponin negative x2. ----- Cardiology consult. NPO. Elevated heart score. 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 IMU admission, telemetry. Patient reports he is going to have sleep study soon, he snores heavily. If patient is to receive large accumulated doses of narcotics, recommend continuous pulse oximetry. Hyponatremia, sodium 120 on admission. Nephrology consulted from ER recommended fluids. Continue normal saline at 75 cc/hour and trend sodium. This could be a combination of beer potomania, primary polydipsia, nausea and vomiting. Alcohol use disorder, nicotine abuse: Greater than 3 minutes spent counseling. Monitor for withdrawals. Leukocytosis 14,600 on admission. Could be reactive due to vomiting. Patient likely has alcoholic gastritis. Check urinalysis, CTA chest abdomen pelvis negative for aortic dissection, possible cystitis. ----- NPO. SCDs. Full code. Normal saline at 75 cc/hour. Care coordination consult for abuse. Hospitalist MIPS Advance Care Plan I have confirmed that the patient's Advanced Care Plan is present, code status is documented, or surrogate decision maker is listed in patient medical record.: Yes Medication Reconciliation I have utilized all available resources to obtain, update and review the patients current medications (includes all prescriptions, OTC, herbals, cannabis, and nutritional supplements).: Yes
[2024-12-15 06:05] LABS: Hematocrit 42.3 % (42.0-52.0); Hemoglobin 14.6 g/dL (14.0-18.0); Immature Granulocyte Percent A 0.6 % (0-0.5); Lymphocytes Absolute Auto 1.47 K/mm3 (0.9-3.2); Mean Corpuscular HGB Conc 34.5 g/dl (32-36); Mean Corpuscular Hemoglobin 30.9 pg (26-34); Mean Corpuscular Volume 89.6 fl (80-100); Nucleated Red Blood Cells Absolute Auto 0.000 K/mm3 (0.0-0.012); Nucleated Red Blood Cells Perc 0.0 % (0.0-0.2); Platelet Count Result 190 k/mm3 (150-375); Red Blood Count 4.72 M/mm3 (4.6-6.20); White Blood Count 10.5 K/mm3 (4.5-10.0)
[2024-12-15 06:30] LABS: Magnesium 2.0 mg/dL (1.6-2.3)
[2024-12-15] MEDS: PANTOPRAZOLE SODIUM IV 40 MG VIAL IV PUSH (09:38)
[2024-12-15] MEDS: METOPROLOL SUCCINATE EXT REL 25 MG TABCR PO (09:38)
[2024-12-15] MEDS: ASPIRIN 81 MG ENTERIC TABLET PO (09:38)
--- NOTE | 2024-12-15 09:45 | P.CONCA_ITS ---
<Statement entered by Venu Escalona MD - 12/15/24 10:53> This documentation has been reviewed and approved. Patient's of past medical history presenting symptoms reviewed with the rounding nurse practitioner. Agree with assessment and recommendations Assessment and Plan Assessment and plan (1) Atypical chest pain: Code(s): R07.89 - Other chest pain Status: Acute Assessment and Plan: Atypical chest pain described as a persistent tightness, not associated with exertion. He has been ruled out for DE with negative troponin x 3. EKG without any STTW abnormalities. Since he has had negative stress test within the last year I don't plan to repeat any ischemic testing during this hospitalization. Recommend aggressive risk factor modification for CAD given strong family history of cardiovascular disease. (2) Essential hypertension: Code(s): I10 - Essential (primary) hypertension Status: Acute Assessment and Plan: Controlled. Continue amlodipine, metoprolol. (3) Dyslipidemia: Code(s): E78.5 - Hyperlipidemia, unspecified Status: Acute Assessment and Plan: Continue statin History of Present Illness History of Present Illness Consult date/time: 12/15/24 09:45 Requesting physician: Jey Muñoz MD Consult reason: chest pain Reason For Visit: Chest pain, hyponatremia Narrative: Jackson Zepeda is a 49 year old male with hypertension and hyperlipidemia who presents to the hospital with complaints of chest tightness, shortness of breath, and nausea. This is a patient who follows with Dr. Broderick at [facility]. He describes persistent central chest tightness yesterday which was associated with shortness of breath later in the day and nausea. He reports that the tightness occurred in the morning and given that it did not resolve, he made the decision to come to the hospital. He is not having chest discomfort currently. He denies palpitations, syncope, chest pain with exertion, orthopnea, edema. He is wondering if his symptoms are related to anxiety and states he does have a history of anxiety and used to take Xanax. He does drink alcohol heavily with a reported 40 drink/week intake. He did have a cardiac workup done one year ago including echo that showed normal EF and negative nuclear stress test. He is comfortably and asymptomatic at the time of my evaluation. Review of Systems 2 Review of Systems: All systems reviewed & are unremarkable except as noted in HPI and below PMFSH Past Medical History Medical History Alcohol abuse Dyslipidemia Essential hypertension Family History Family History Father History of quadruple bypass Myocardial infarction Mother Brain aneurysm Sibling Myocardial infarction Social History Social History Smoking packs per day: 1 Smoking cigarettes per day: 20.0 Years smoked: 10 Smoking pack-years: 10.00 Smoking status: Former smoker Tobacco type: cigarettes Smokeless tobacco user: chewing tobacco Second hand tobacco smoke exposure: No Additional smoking assessment comments: 20 years use Alcohol intake: current Drinks per week: 40 Alcohol use details: 3 drinks a week Substance use: current Substance use type: marijuana Lack of Transportation: No Lack of Food: Never True Current Housing: I Have Housing Concerned About Future Housing: No Difficulty Paying Gas/Electric Bills: No Difficulty Paying for Meds: No Currently Unemployed: No Education: Bachelor's Degree Difficulty w/ Childcare or Family Care: No Living arrangements: with family Occupation/Education: occupation Gender identity (if verbalized by the patient): Male Sexual Orientation (if Verbalized by the Patient): Straight or Heterosexual Spiritual care concerns: No Agree to blood products: Yes Meds Home Medications and Allergies Home Medications ?Medication ?Instructions ?Recorded ?Confirmed ?Type amlodipine 5 mg tablet See Rx Instructions .Route . COMPLEX 03/03/24 12/15/24 History aspirin 81 mg tablet,delayed 81 mg PO DAILY 03/03/24 1 History release (Adult Aspirin Regimen) atorvastatin 40 mg tablet 40 mg PO QHS 03/03/24 History metoprolol succinate 25 mg 25 mg PO DAILY 03/03/2410/02 History tablet,extended release 24 hr Allergies Allergy/AdvReac Type Severity Reaction Status Date / Time Bumble Bee Allergy Mild Swelling Uncoded 04/13/24 07:27 Shrimp Allergy Mild Swelling Uncoded 04/13/24 07:27 Vital Signs Vital Signs - 24 hr 12/14/24 20:31 12/14/24 20:39 12/14/24 20:45 Temperature 36.8 C Pulse Rate 74 74 75 Respiratory Rate 16 17 16 Blood Pressure 142/80 H Pulse Oximetry 95 95 96 Oxygen Delivery Room Air Oxygen Flow Rate 12/14/24 21:16 12/14/24 21:33 12/14/24 21:59 Temperature Pulse Rate 74 64 64 Respiratory Rate 28 H 14 25 H Blood Pressure Pulse Oximetry 90 97 Oxygen Delivery Oxygen Flow Rate 12/14/24 22:00 12/14/24 22:21 12/14/24 23:06 Temperature Pulse Rate 68 59 L Respiratory Rate 20 14 Blood Pressure Pulse Oximetry 95 100 Oxygen Delivery Nasal Cannula Oxygen Flow Rate 2 12/14/24 23:18 12/14/24 23:32 12/14/24 23:47 Temperature Pulse Rate 53 L 54 L 58 L Respiratory Rate 14 15 14 Blood Pressure Pulse Oximetry 93 93 Oxygen Delivery Oxygen Flow Rate 12/15/24 01:09 12/15/24 01:10 12/15/24 01:15 Temperature Pulse Rate 63 65 62 Respiratory Rate 20 18 15 Blood Pressure 148/83 H Pulse Oximetry 98 96 96 Oxygen Delivery Oxygen Flow Rate 12/15/24 01:16 12/15/24 01:38 12/15/24 01:49 Temperature Pulse Rate 65 62 57 L Respiratory Rate 16 14 14 Blood Pressure 149/91 H Pulse Oximetry 96 97 Oxygen Delivery Oxygen Flow Rate 12/15/24 02:00 12/15/24 02:01 12/15/24 02:15 Temperature Pulse Rate 61 59 L 61 Respiratory Rate 15 15 13 Blood Pressure 144/92 H 164/104 H Pulse Oximetry 92 96 95 Oxygen Delivery Oxygen Flow Rate 12/15/24 02:19 12/15/24 02:30 12/15/24 02:31 Temperature Pulse Rate 61 74 65 Respiratory Rate 14 18 17 Blood Pressure 128/116 H Pulse Oximetry 97 95 97 Oxygen Delivery Oxygen Flow Rate 12/15/24 02:45 12/15/24 02:46 12/15/24 03:00 Temperature Pulse Rate 63 67 67 Respiratory Rate 16 21 H 16 Blood Pressure 143/89 H 153/95 H Pulse Oximetry 94 95 96 Oxygen Delivery Oxygen Flow Rate 12/15/24 03:01 12/15/24 03:17 12/15/24 03:30 Temperature Pulse Rate 59 L 58 L 67 Respiratory Rate 14 14 17 Blood Pressure Pulse Oximetry 97 96 Oxygen Delivery Oxygen Flow Rate 12/15/24 03:31 12/15/24 03:47 12/15/24 03:53 Temperature 36.6 C Pulse Rate 58 L 70 77 Respiratory Rate 14 16 Blood Pressure 143/85 H 147/87 H Pulse Oximetry 99 Oxygen Delivery Oxygen Flow Rate 12/15/24 04:00 12/15/24 04:00 12/15/24 04:00 Temperature Pulse Rate 70 62 Respiratory Rate Blood Pressure Pulse Oximetry Oxygen Delivery Room Air Oxygen Flow Rate 12/15/24 04:15 12/15/24 04:30 12/15/24 06:00 Temperature Pulse Rate 66 78 67 Respiratory Rate Blood Pressure Pulse Oximetry Oxygen Delivery Oxygen Flow Rate 12/15/24 08:02 12/15/24 09:38 Temperature 36.8 C Pulse Rate 67 66 Respiratory Rate 20 Blood Pressure 128/72 Pulse Oximetry 97 Oxygen Delivery Oxygen Flow Rate Exam 2 Const: General: comfortable, no acute distress, alert and awake O rientation/consciousness: patient oriented x3 HENMT: Head: normal to inspection Eyes: General: appearance normal, both eyes and all related structures P upils: Equal, round and reactive pupils present Neck: Neck: normal visual inspection, supple and no JVD Carotids: normal carotid upstroke Resp: Effort & Inspection: normal respiratory effort Auscultation: clear to auscultation bilaterally Cardio: Rate: regular rate Rhythm: regular rhythm Heart sounds: S1 normal heart sound present, S2 normal heart sound present and no murmurs GI: Auscultation: normal bowel sounds Skin: General skin exam: normal color Neuro: General: patient oriented x3 Cranial nerves: Yes Equal, round and reactive pupils present Extrem: General: normal to inspection Psych: Appearance: grossly normal Mental Status: mental status grossly normal Results Labs and Meds 12/15/24 05:55 12/15/24 05:55 Lab results: Cardiac Enzymes 12/14/24 12/14/24 12/15/24 Range/Units 20:38 23:24 02:51 AST 42 (17-59) U/L Troponin I < 0.012 < 0.012 < 0.012 (0.000-0.034) ng/mL Coagulation 12/14/24 Range/Units 20:38 PT 12.4 (11.1-14.7) Seconds APTT 27.2 (22.3-36.8) Seconds CBC 12/14/24 12/15/24 Range/Units 20:37 05:55 WBC 14.6 H 10.5 H (4.5-10.0) K/mm3 RBC 4.70 4.72 (4.6-6.20) M/mm3 Hgb 14.8 14.6 (14.0-18.0) g/dL Hct 41.6 L 42.3 (42.0-52.0) % Plt Count 214 190 (150-375) k/mm3 Lymph # (Auto) 1.24 1.47 (0.9-3.2) K/mm3 [place] # (Auto) 0.9 H 0.8 H (0.1-0.6) K/mm3 Eos # (Auto) 0.0 0.0 (0-0.3) K/mm3 Baso # (Auto) 0.1 0.0 (0.0-0.1) K/mm3 Comprehensive Metabolic Panel 12/14/24 Range/Units 23:24 Sodium 120 L (137-145) mmol/L Potassium 3.7 (3.4-5.0) mmol/L Chloride 86 L (98-107) mmol/L Carbon Dioxide 26 (22-30) mmol/L BUN 8 L D (9-20) mg/dL Creatinine 0.60 L (0.7-1.3) mg/dL Glucose 134 H (65-110) mg/dL Calcium 8.5 (8.4-10.2) mg/dL AST 42 (17-59) U/L ALT 56 H (6-50) U/L Alkaline Phosphatase 90 (38-126) U/L Total Protein 7.2 (6.3-8.2) g/dL Albumin 4.2 (3.5-5.1) g/dL Intake and Output 12/14/24 12/15/24 12/15/24 23:59 07:59 15:59 Intake Total 240 Balance 240 Intake: Oral 240 Other: # Unmeasured Voids 2 Patient Weight 12/15/24 23:59 Weight 103.3 kg
--- NOTE | 2024-12-15 10:19 | P.PNIM_ITS ---
Progress Note: A&P Assessment and Plan (1) Alcohol abuse: Code(s): F10.10 - Alcohol abuse, uncomplicated Status: Acute (2) Chest pain: Code(s): R07.9 - Chest pain, unspecified Status: Acute (3) Acute hyponatremia: Code(s): E87.1 - Hypo-osmolality and hyponatremia Status: Acute Plan 49-year-old male with PMH hypertension, dyslipidemia, alcohol use disorder, nicotine abuse by way of nicotine pouches, obesity class 1, presents to [facility] ER on 12/15/2024 complaining of chest pain. He last had workup in 2023 when he had midsternal chest pain. Nuclear stress test on 12/18/2023 demonstrates EF of 60%, a small/mild mid anteroseptal segment fixed defect, possibly attenuation artifact. His primary care is Geri Hughes. 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 He has been taking his aspirin. He uses nicotine pouches, he drinks very often, several beers per day. is present to report this. He believes he has had mild withdrawal before with sweating and tremors. He denies any other recreational drug use aside from occasional marijuana. Last alcoholic drink was 1 day prior to admission. # Chest pain described as heavy, 9/10 left-sided which radiates to the back. This started while he was resting on 12/14/2024. He has had some vomiting nausea as well. He reports he has burning in his throat related to acid reflux and he uses Tums occasionally which helps. Patient got 2 sprays of nitroglycerin and reports that does not help. Morphine did not help. Finally Dilaudid improved symptoms. He reports the chest pain is minimal, 3/10. He is more so concerned about his acid reflux. He also tells me he drinks about 3 gal of water per day to stay hydrated. He does eat at least 2 full meals a day otherwise. Patient given Zofran, Compazine, aspirin 324 mg p.o. x1 as well. EKG without acute ST changes. Troponin negative x2. Cardiology consulted. Elevated heart score. 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 Telemetry monitoring Patient reports he is going to have sleep study soon, he snores heavily. If patient is to receive large accumulated doses of narcotics, recommend continuous pulse oximetry. # Hyponatremia: Sodium 120 on admission. Nephrology consulted from ER recommended fluids. Continue normal saline at 75 cc/hour and trend sodium. This could be a combination of beer potomania, primary polydipsia, nausea and vomiting. # Alcohol use disorder, nicotine abuse: Greater than 3 minutes spent counseling. Monitor for withdrawals. # Leukocytosis 14,600 on admission. Could be reactive due to vomiting. Patient likely has alcoholic gastritis. Check urinalysis, CTA chest abdomen pelvis negative for aortic dissection, possible cystitis. # DVT prophylaxis SCDs # Code status full code Subjective Date/time seen: 12/15/24 10:19 Interval history: Chart reviewed. No new complaints. Review of Systems Review of Systems: All systems reviewed & are unremarkable except as noted in HPI and below (Subjective) Exam Narrative: GENERAL: Well-appearing, well-nourished, and in moderate acute pain distress. HEAD: Normocephalic, atraumatic. EYES: PERRLA and EOMI. ENT: Nares clear, no rhinorrhea or epistaxis. Mucous membranes moist. NECK: Supple. CHEST: Clear to auscultation. No respiratory distress. HEART: Regular rate and rhythm. No murmur heard. Normal peripheral pulses. ABDOMEN: Soft, nontender, nondistended, normal active bowel sounds. EXTREMITIES: Normal range of motion. No edema. SKIN: Warm, dry, no rash. NEURO: No focal deficits. Alert and oriented x3. PSYCH: Normal mood and affect. Objective Data Vital Signs Vital Signs: Vital Signs - 24 hr 12/14/24 20:31 12/14/24 20:39 12/14/24 20:45 Temperature 98.3 F Pulse Rate 74 74 75 Respiratory Rate 16 17 16 Blood Pressure 142/80 H Pulse Oximetry 95 95 96 Oxygen Delivery Room Air Oxygen Flow Rate 12/14/24 21:16 12/14/24 21:33 12/14/24 21:59 Temperature Pulse Rate 74 64 64 Respiratory Rate 28 H 14 25 H Blood Pressure Pulse Oximetry 90 97 Oxygen Delivery Oxygen Flow Rate 12/14/24 22:00 12/14/24 22:21 12/14/24 23:06 Temperature Pulse Rate 68 59 L Respiratory Rate 20 14 Blood Pressure Pulse Oximetry 95 100 Oxygen Delivery Nasal Cannula Oxygen Flow Rate 2 12/14/24 23:18 12/14/24 23:32 12/14/24 23:47 Temperature Pulse Rate 53 L 54 L 58 L Respiratory Rate 14 15 14 Blood Pressure Pulse Oximetry 93 93 Oxygen Delivery Oxygen Flow Rate 12/15/24 01:09 12/15/24 01:10 12/15/24 01:15 Temperature Pulse Rate 63 65 62 Respiratory Rate 20 18 15 Blood Pressure 148/83 H Pulse Oximetry 98 96 96 Oxygen Delivery Oxygen Flow Rate 12/15/24 01:16 12/15/24 01:38 12/15/24 01:49 Temperature Pulse Rate 65 62 57 L Respiratory Rate 16 14 14 Blood Pressure 149/91 H Pulse Oximetry 96 97 Oxygen Delivery Oxygen Flow Rate 12/15/24 02:00 12/15/24 02:01 12/15/24 02:15 Temperature Pulse Rate 61 59 L 61 Respiratory Rate 15 15 13 Blood Pressure 144/92 H 164/104 H Pulse Oximetry 92 96 95 Oxygen Delivery Oxygen Flow Rate 12/15/24 02:19 12/15/24 02:30 12/15/24 02:31 Temperature Pulse Rate 61 74 65 Respiratory Rate 14 18 17 Blood Pressure 128/116 H Pulse Oximetry 97 95 97 Oxygen Delivery Oxygen Flow Rate 12/15/24 02:45 12/15/24 02:46 12/15/24 03:00 Temperature Pulse Rate 63 67 67 Respiratory Rate 16 21 H 16 Blood Pressure 143/89 H 153/95 H Pulse Oximetry 94 95 96 Oxygen Delivery Oxygen Flow Rate 12/15/24 03:01 12/15/24 03:17 12/15/24 03:30 Temperature Pulse Rate 59 L 58 L 67 Respiratory Rate 14 14 17 Blood Pressure Pulse Oximetry 97 96 Oxygen Delivery Oxygen Flow Rate 12/15/24 03:31 12/15/24 03:47 12/15/24 03:53 Temperature 97.9 F Pulse Rate 58 L 70 77 Respiratory Rate 14 16 Blood Pressure 143/85 H 147/87 H Pulse Oximetry 99 Oxygen Delivery Oxygen Flow Rate 12/15/24 04:00 12/15/24 04:00 12/15/24 04:00 Temperature Pulse Rate 70 62 Respiratory Rate Blood Pressure Pulse Oximetry Oxygen Delivery Room Air Oxygen Flow Rate 12/15/24 04:15 12/15/24 04:30 12/15/24 06:00 Temperature Pulse Rate 66 78 67 Respiratory Rate Blood Pressure Pulse Oximetry Oxygen Delivery Oxygen Flow Rate 12/15/24 08:02 12/15/24 09:38 Temperature 98.3 F Pulse Rate 67 66 Respiratory Rate 20 Blood Pressure 128/72 Pulse Oximetry 97 Oxygen Delivery Oxygen Flow Rate Intake/Output Intake/Output: Intake & Output 12/12/24 12/13/24 12/14/24 12/15/24 23:59 23:59 23:59 23:59 Intake Total 240 Balance 240 Meds/Results Medications: Active Medications Generic Name Dose Route Start Last Admin Trade Name Freq PRN Reason Stop Dose Admin Aspirin 81 mg 12/15/24 09:00 12/15/24 09:38 Aspirin 81 Mg Enteric Tablet PO 81 mg DAILY KAYE Administration Atorvastatin Calcium 40 mg 12/15/24 21:00 Atorvastatin 40 Mg Tablet PO QHS [facility] Calcium Carbonate 200 mg 12/15/24 04:14 12/15/24 04:20 Calcium Carbonate (Tums) 500 Mg (200 Mg Elemental) PO 200 mg Q6H PRN Administration Indigestion Sodium Chloride 1,000 mls @ 75 mls/hr 12/15/24 02:40 12/15/24 03:44 Normal Saline Iv IV CONT 75 mls/hr .[id number] KAYE Administration Metoprolol Succinate 25 mg 12/15/24 09:00 12/15/24 09:38 Metoprolol Succinate Ext Rel 25 Mg Tabcr PO 25 mg DAILY KAYE Administration Ondansetron HCl 4 mg 12/15/24 02:40 Ondansetron Inj 4 Mg/2 Ml Vial IV PUSH Q4H PRN Nausea Pantoprazole Sodium 40 mg 12/15/24 09:00 12/15/24 09:38 Pantoprazole Sodium Iv 40 Mg Vial IV PUSH 40 mg QAM KAYE Administration Radiology Results: ITS Impressions Chest X-Ray 12/14/24 22:19 IMPRESSION: 1. No acute cardiopulmonary disease. Chest/Abdomen/Pelvis CTA 12/15/24 08:13 IMPRESSION: 1. Mild aortic atherosclerosis. No aneurysm or dissection. 2. Wall thickening of the distal esophagus, consistent with esophagitis. Labs Labs: Laboratory Results - last 24 hr 12/14/24 12/14/24 12/14/24 20:37 20:38 23:24 WBC 14.6 H RBC 4.70 Hgb 14.8 Hct 41.6 L MCV 88.5 MCH 31.5 MCHC 35.6 RDW 12.0 Plt Count 214 MPV 11.1 H Immature Gran % (Auto) 0.5 Neut % (Auto) 84.1 H Lymph % (Auto) 8.5 L [place] % (Auto) 6.2 Eos % (Auto) 0.2 Baso % (Auto) 0.5 Lymph # (Auto) 1.24 [place] # (Auto) 0.9 H Eos # (Auto) 0.0 Baso # (Auto) 0.1 Abs Immat Gran (auto) 0.08 H Absolute Neuts (auto) 12.3 H Absolute Nucleated RBC 0.000 Nucleated RBC % 0.0 PT 12.4 INR 0.9 APTT 27.2 Sodium 120 L Potassium 3.7 Chloride 86 L Carbon Dioxide 26 Anion Gap 8 BUN 8 L D Creatinine 0.60 L Estim Creat Clear Calc 146 Estimated GFR > 60 Glucose 134 H Calcium 8.5 Magnesium Total Bilirubin 1.5 H AST 42 ALT 56 H Alkaline Phosphatase 90 Troponin I < 0.012 < 0.012 Total Protein 7.2 Albumin 4.2 Lipase 67 12/15/24 12/15/24 02:51 05:55 WBC 10.5 H RBC 4.72 Hgb 14.6 Hct 42.3 MCV 89.6 MCH 30.9 MCHC 34.5 RDW 11.9 Plt Count 190 MPV 10.0 Immature Gran % (Auto) 0.6 H Neut % (Auto) 76.8 H Lymph % (Auto) 14.0 L [place] % (Auto) 7.9 Eos % (Auto) 0.4 Baso % (Auto) 0.3 Lymph # (Auto) 1.47 [place] # (Auto) 0.8 H Eos # (Auto) 0.0 Baso # (Auto) 0.0 Abs Immat Gran (auto) 0.06 H Absolute Neuts (auto) 8.1 H Absolute Nucleated RBC 0.000 Nucleated RBC % 0.0 PT INR APTT Sodium Potassium Chloride Carbon Dioxide Anion Gap BUN Creatinine Estim Creat Clear Calc Estimated GFR Glucose Calcium Magnesium 2.0 Total Bilirubin AST ALT Alkaline Phosphatase Troponin I < 0.012 Total Protein Albumin Lipase
[2024-12-15 10:33] LABS: Anion Gap 13 mmol/L (4-12); Blood Urea Nitrogen 7 mg/dL (9-20); Calcium 9.5 mg/dL (8.4-10.2); Carbon Dioxide 22 mmol/L (22-30); Chloride 94 mmol/L (98-107); Estimated CRCL calculation 130 ml/min; Estimated Glomerular Filt Rate > 60; Glucose 160 mg/dL (65-110); Potassium 3.7 mmol/L (3.4-5.0); Sodium 129 mmol/L (137-145)
--- NOTE | 2024-12-15 10:51 | P.DS_ITS ---
DS: Admitting Diagnosis Discharge Date 12/15/2024 Admitting Diagnosis Chest pain DS: Discharge Diagnosis Discharge Diagnosis (1) Alcohol abuse: Code(s): F10.10 - Alcohol abuse, uncomplicated Status: Acute (2) Chest pain: Code(s): R07.9 - Chest pain, unspecified Status: Acute (3) Acute hyponatremia: Code(s): E87.1 - Hypo-osmolality and hyponatremia Status: Acute DS: Summary Hospital Course Hospital Course: 49-year-old male with PMH hypertension, dyslipidemia, alcohol use disorder, nicotine abuse by way of nicotine pouches, obesity class 1, presents to [facility] ER on 12/15/2024 complaining of chest pain. He last had workup in 2023 when he had midsternal chest pain. Nuclear stress test on 12/18/2023 demonstrates EF of 60%, a small/mild mid anteroseptal segment fixed defect, possibly attenuation artifact. His primary care is Geri Hughes. He reports he was following with a cap machine operator and was told to have yearly checkups and everything was fine. He has been taking his aspirin. He uses nicotine pouches, he drinks very often, several beers per day. is present to report this. He believes he has had mild withdrawal before with sweating and tremors. He denies any other recreational drug use aside from occasional marijuana. Last alcoholic drink was 1 day prior to admission. # Chest pain described as heavy, 9/10 left-sided which radiates to the back. This started while he was resting on 12/14/2024. He has had some vomiting nausea as well. He reports he has burning in his throat related to acid reflux and he uses Tums occasionally which helps. Patient got 2 sprays of nitroglycerin and reports that does not help. Morphine did not help. Finally Dilaudid improved symptoms. He reports the chest pain is minimal, 3/10. He is more so concerned about his acid reflux. He drinks about 3 gal of water per day to stay hydrated. He does eat at least 2 full meals a day otherwise. Patient given Zofran, Compazine, aspirin 324 mg p.o. x1 as well. EKG without acute ST changes. Troponin negative x2. Cardiology consulted. Elevated heart score. 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 Telemetry monitoring with no arrhythmias noted Chest pain resolved with treatment added Protonix as well CTA findings of esophagitis. Will be added on PPI at discharge Patient reports he is going to have sleep study soon, he snores heavily. If patient is to receive large accumulated doses of narcotics, recommend continuous pulse oximetry. # Hyponatremia: Sodium 120 on admission. Nephrology consulted from ER recommended fluids. Patient received normal saline infusion. His could be a combination of beer potomania, primary polydipsia, nausea and vomiting. Sodium level did improve to 129. Discussed with Nephrology advised alcohol abstinence # Alcohol use disorder, nicotine abuse: Greater than 3 minutes spent counseling. Monitor for withdrawals. # Leukocytosis 14,600 on admission. Could be reactive due to vomiting. Patient likely has alcoholic gastritis. Check urinalysis, CTA chest abdomen pelvis negative for aortic dissection, possible cystitis. # DVT prophylaxis SCDs # Code status full code Time Spent with Patient Time attestation: Total time spent providing and/or coordinating discharge services: 40 minutes Exam Narrative: GENERAL: Well-appearing, well-nourished, and in moderate acute pain distress. HEAD: Normocephalic, atraumatic. EYES: PERRLA and EOMI. ENT: Nares clear, no rhinorrhea or epistaxis. Mucous membranes moist. NECK: Supple. CHEST: Clear to auscultation. No respiratory distress. HEART: Regular rate and rhythm. No murmur heard. Normal peripheral pulses. ABDOMEN: Soft, nontender, nondistended, normal active bowel sounds. EXTREMITIES: Normal range of motion. No edema. SKIN: Warm, dry, no rash. NEURO: No focal deficits. Alert and oriented x3. PSYCH: Normal mood and affect. DS: Data Data Completed and Pending Labs on day of discharge: Labs from last 24 hours 12/15/24 12/15/24 12/14/24 05:55 02:51 23:24 WBC 10.5 H RBC 4.72 Hgb 14.6 Hct 42.3 MCV 89.6 MCH 30.9 MCHC 34.5 RDW 11.9 Plt Count 190 MPV 10.0 Immature Gran % (Auto) 0.6 H Neut % (Auto) 76.8 H Lymph % (Auto) 14.0 L [place] % (Auto) 7.9 Eos % (Auto) 0.4 Baso % (Auto) 0.3 Lymph # (Auto) 1.47 [place] # (Auto) 0.8 H Eos # (Auto) 0.0 Baso # (Auto) 0.0 Abs Immat Gran (auto) 0.06 H Absolute Neuts (auto) 8.1 H Absolute Nucleated RBC 0.000 Nucleated RBC % 0.0 PT INR APTT Sodium 129 L 120 L Potassium 3.7 3.7 Chloride 94 L 86 L Carbon Dioxide 22 26 Anion Gap 13 H 8 BUN 7 L 8 L D Creatinine 0.67 L 0.60 L Estim Creat Clear Calc 130 146 Estimated GFR > 60 > 60 Glucose 160 H 134 H Calcium 9.5 8.5 Magnesium 2.0 Total Bilirubin 1.5 H AST 42 ALT 56 H Alkaline Phosphatase 90 Troponin I < 0.012 < 0.012 Total Protein 7.2 Albumin 4.2 Lipase 12/14/24 12/14/24 20:38 20:37 WBC 14.6 H RBC 4.70 Hgb 14.8 Hct 41.6 L MCV 88.5 MCH 31.5 MCHC 35.6 RDW 12.0 Plt Count 214 MPV 11.1 H Immature Gran % (Auto) 0.5 Neut % (Auto) 84.1 H Lymph % (Auto) 8.5 L [place] % (Auto) 6.2 Eos % (Auto) 0.2 Baso % (Auto) 0.5 Lymph # (Auto) 1.24 [place] # (Auto) 0.9 H Eos # (Auto) 0.0 Baso # (Auto) 0.1 Abs Immat Gran (auto) 0.08 H Absolute Neuts (auto) 12.3 H Absolute Nucleated RBC 0.000 Nucleated RBC % 0.0 PT 12.4 INR 0.9 APTT 27.2 Sodium Potassium Chloride Carbon Dioxide Anion Gap BUN Creatinine Estim Creat Clear Calc Estimated GFR Glucose Calcium Magnesium Total Bilirubin AST ALT Alkaline Phosphatase Troponin I < 0.012 Total Protein Albumin Lipase 67 Imaging Radiologist's impression: ITS Impressions Chest X-Ray 12/14/24 22:19 IMPRESSION: 1. No acute cardiopulmonary disease. Chest/Abdomen/Pelvis CTA 12/15/24 08:13 IMPRESSION: 1. Mild aortic atherosclerosis. No aneurysm or dissection. 2. Wall thickening of the distal esophagus, consistent with esophagitis. Discharge Plan Discharge Attending physician on discharge: Matty Balderrama Consulting providers: Deann Song; Venu Escalona Discharging Clinician: Matty Balderrama Anticipated Discharge Date/Time: 12/15/24 10:56 Patient Disposition: Home Activity: as tolerated Diet: heart healthy Discharge Instructions: no alcohol Patient Instructions: Antibiotic Form Patient Language: Mosotho Stand Alone Forms: General Discharge Information Follow-up/Referrals: Geri Johnson APRN [Primary Care Provider, Internal Medicine] - 1 Week Discharge Medications: New pantoprazole [Protonix] 40 mg tablet,delayed release (DR/EC) 40 mg PO QAM Qty: 30 0RF Continued aspirin [Adult Aspirin Regimen] 81 mg tablet,delayed release (DR/EC) 81 mg PO DAILY atorvastatin 40 mg tablet 40 mg PO QHS metoprolol succinate 25 mg tablet extended release 24 hr 25 mg PO DAILY amlodipine 5 mg tablet See Rx Instructions .ROUTE .COMPLEX Dose Instruction: TAKE 1 TABLET BY MOUTH DAILY Rx Instructions: TAKE 1 TABLET BY MOUTH DAILY Date of admission: 12/15/24 02:41 Primary Care Provider: Geri Johnson Admitting Provider: Justina Mireles Attending physician on admission: Justina Mireles Condition: Stable
== END 2024-12-15 13:31 | disposition home or self-care (01) ==
LOC: ANHED 12-15 02:42 → ANHIMU 12-15 10:56
PROVIDERS: Admitting Provider General Practice; Emergency Provider Emergency Medicine; PCP Nurse Practitioner Family; Visit Provider Internal Medicine
DX: R07.89 Other chest pain (principal); F10.10 Alcohol abuse, uncomplicated; E87.1 Hypo-osmolality and hyponatremia; E78.5 Hyperlipidemia, unspecified; I10 Essential (primary) hypertension; Z87.891 Personal history of nicotine dependence; E66.9 Obesity, unspecified; Z68.34 Body mass index [BMI] 34.0-34.9, adult
CPT/HCPCS: 36415; 71046; 71275; 74174; 80048; 80053; 83690; 83735; 84484; 85025; 85610; 85730; 93005; 96374; 96375; 99285; A9270; G0378; J0780; J1171; J2270; J2405; J2470; J7030; Q9967